=== PATIENT | female | born 1985 | race Caucasian/White ===

== ENCOUNTER → 2021-03-09 | Outpatient (CLI) | payer BC ==
[2021-03-09 10:51] LABS: BASO # 0.09 (0.02-0.10); HEMOGLOBIN 14.2 g/dL (12.5-16.0); MEAN CELL VOLUME 86 fl (78-100)
[2021-03-09 10:59] LABS: EOS # 0.24 (0.04-0.40); EOS % 2.8 % (1.0-5.0); LYMPH# 2.41 (1.50-4.00); MEAN CORPUSCULAR HEMOGLOBIN 29 pg (27-31); MEAN CORPUSCULAR HGB CONC 34 g/dL (33-37); MEAN PLATELET VOLUME 10.7 fl (7.4-10.4); MONO # 0.66 (0.20-0.80); PLATELET COUNT 277 K/mm3 (130-400); RED BLOOD COUNT 4.89 M/mm3 (4.10-5.30); RED CELL DISTRIBUTION WIDTH 12.1 % (11.5-14.5); WHITE BLOOD COUNT 8.7 K/mm3 (4.8-10.8)
== END ==
LOC: LAB 10:29
PROVIDERS: Nurse Practitioner Primary Care
DX: Z00.00 Encounter for general adult medical examination without abnormal findings (principal)

== ENCOUNTER → 2022-05-21 | Outpatient (CLI) | payer BC | LOC: RAD 07:05 | DX: M25.552 Pain in left hip (principal); M89.8X5 Other specified disorders of bone, thigh | CPT/HCPCS: A9585; Q9967 ==